=== PATIENT | female | born 1950 | race Caucasian/White ===

== ENCOUNTER 2017-01-03 13:40 | Inpatient (IN) | payer MEDICARE, OTHER ==
[2017-01-03] VITALS (261 sets, daily range): BP systolic 144–152; BP diastolic 71–79; PULSE 109–124; TEMP 97.2–98; O2SAT 86–98
[~2017-01-03] VITALS: Ht 162.6 cm; Wt 76.4 kg
[~2017-01-03 13:40] MED LIST: ASPIRIN 32325 MG/TAB PO; LIPITOR 40MG TA40 MG PO; METOPROLOL SUCC50 M1 PO; PLAVIX 75MG TAB75 MG PO; SIMVASTATIN40 MG PO; THEO-DUR 2200 MG/TAB PO; TYLENOL 325MG325 MG PO; ZESTRIL 5MG5 MG PO
[2017-01-03] MEDS ORDERED: ZOCOR 40MG40 MG PO (14:15)
[2017-01-03] MEDS ORDERED: ASPIRIN 81M81 MG/TA2 PO (14:16)
[2017-01-03] MEDS ORDERED: PROAIR HFA0.09 MG/AC IH (14:17)
[2017-01-03 14:21] LABS: BASO # 0.1 (0.0-0.2); BASO % 0.4 % (0.0-2.0); EOS # 0.1 (0.0-0.7); EOS % 0.5 % (0-4.0); GRAN # 13.6 (1.4-6.5); GRAN % 85.4 % (42.2-75.2); HEMATOCRIT 46.4 % (37.0-47.0); HEMOGLOBIN 14.8 g/dl (12.5-16.0); LYMPH # 1.2 (1.2-3.4); LYMPH % 7.6 % (20.0-51.0); MEAN CELL VOLUME 86 fl (80.0-100.0); MEAN CORPUSCULAR HEMOGLOBIN 27 pg (27.0-31.0); MEAN CORPUSCULAR HGB CONC 32 g/dl (33.0-37.0); MEAN PLATELET VOLUME 11.5 fl (7.4-10.4); MONO # 0.9 (0.1-0.6); MONO % 5.6 % (1.7-9.3); PLATELET COUNT 213 K/mm3 (130-400); RED BLOOD COUNT 5.43 M/mm3 (4.10-5.30); REDCELL DISTRIBUTION WIDTH-CV 16.2 % (11.5-14.5)
[2017-01-03 14:25] LABS: INR 1.1 (0.8-3.0); PROTHROMBIN TIME 12.3 SECONDS (9.7-12.8)
[2017-01-03 14:28] LABS: PARTIAL THROMBOPLASTIN TIME 33.1 SECONDS (26.0-37.0)
[2017-01-03 14:39] LABS: ADJUSTED CALCIUM 9.5 mg/dL (8.4-10.2); ALANINE AMINOTRANSFERASE 21 U/L (9-52); ALBUMIN 4.5 gm/dL (3.5-5.0); ALKALINE PHOSPHATASE 79 U/L (50-136); ANION GAP 14 mmol/L (7-16); BILIRUBIN,TOTAL 1.1 mg/dL (0.0-1.0); BLOOD UREA NITROGEN 12 mg/dL (7-17); CALCIUM 9.9 mg/dL (8.4-10.2); CARBON DIOXIDE 29 mmol/L (22-30); CHLORIDE 97 mmol/L (98-107); CREATININE, serum 0.63 mg/dL (0.52-1.25); GLUCOSE 130 mg/dL (74-106); MAGNESIUM 1.7 mg/dL (1.6-2.3); PHOSPHOROUS 3.4 mg/dL (2.5-4.5); POTASSIUM 4.1 mmol/L (3.4-5.0); SODIUM 140 mmol/L (137-145); TOTAL PROTEIN 8.6 gm/dL (6.4-8.2)
[2017-01-03 14:41] LABS: INFLUENZA B NEGATIVE
[2017-01-03 14:50] LABS: B-TYPE NATRIURETIC PEPTIDE 1440 pg/mL (0-125)
[2017-01-03 14:51] LABS: TROPONIN-I < 0.012 ng/mL (0.000-0.034)
[2017-01-04] VITALS (455 sets, daily range): BP systolic 111–139; BP diastolic 59–82; PULSE 69–102; TEMP 97.9–99; O2SAT 83–97
[2017-01-04 06:09] LABS: ADD PATHOLOGY DIFF REVIEW NO
[2017-01-04 06:24] LABS: HEMATOCRIT 41.1 % (37.0-47.0); MEAN CELL VOLUME 87 fl (80.0-100.0); MEAN CORPUSCULAR HEMOGLOBIN 27 pg (27.0-31.0); MEAN CORPUSCULAR HGB CONC 32 g/dl (33.0-37.0); MEAN PLATELET VOLUME 11.3 fl (7.4-10.4); PLATELET COUNT 180 K/mm3 (130-400); RED BLOOD COUNT 4.75 M/mm3 (4.10-5.30); REDCELL DISTRIBUTION WIDTH-CV 16.3 % (11.5-14.5); WHITE BLOOD COUNT 15.1 K/mm3 (4.8-10.8)
[2017-01-04 06:48] LABS: ADJUSTED CALCIUM 9.2 mg/dL (8.4-10.2); ALBUMIN 3.8 gm/dL (3.5-5.0); BILIRUBIN,TOTAL 0.7 mg/dL (0.0-1.0); CREATININE, serum 0.49 mg/dL (0.52-1.25); POTASSIUM 4.1 mmol/L (3.4-5.0); TOTAL PROTEIN 7.4 gm/dL (6.4-8.2)
[2017-01-04 08:32] LABS: BAND 16 % (0-10); METAMYELOCYTE 1 % (0-0); MYELOCYTE 1 % (0-0); NEUTROPHILS 75 % (42.0-75.2); PLATELET ESTIMATE NORMAL (NORMAL); TOTAL CELLS COUNTED 100
[2017-01-05 03:39] VITALS: BP 120/67; PULSE 101; TEMP 98.6
[2017-01-05 07:33] VITALS: BP 156/70; PULSE 94; TEMP 97.6
[2017-01-05 07:42] VITALS: BP 115/87; PULSE 98; TEMP 98.4
[2017-01-05 11:16] VITALS: BP 128/72; PULSE 104; TEMP 98.5
[2017-01-05] MEDS ORDERED: IPRATROPIUM BROM3 M1 IH (12:54)
[2017-01-05] MEDS ORDERED: CEFTAZIDIME PO (13:04)
[2017-01-05] MEDS ORDERED: [UNRECOGNIZED DRUG - OTHER] PO (13:04)
== END 2017-01-05 14:15 | disposition home or self-care (01) | DRG 190 ==
LOC: COL.ER 13:40 → IMCU 15:51 → MEDICAL 15:51
PROVIDERS: Emergency Medicine; Internal Medicine Cardiovascular Disease
PROC: 02HV33Z Insertion of Infusion Device into Superior Vena Cava, Percutaneous Approach (ICD-10-PCS; principal; 2017-01-04)
DX: J44.0 Chronic obstructive pulmonary disease with (acute) lower respiratory infection (principal); J18.9 Pneumonia, unspecified organism; I50.20 Unspecified systolic (congestive) heart failure; J44.1 Chronic obstructive pulmonary disease with (acute) exacerbation; Z95.5 Presence of coronary angioplasty implant and graft; I25.2 Old myocardial infarction; I27.2 Other secondary pulmonary hypertension; I20.9 Angina pectoris, unspecified; Z87.891 Personal history of nicotine dependence
CPT/HCPCS: 99223-AI; 99233-AI; 99239; C1751; C1894; J0692; J1644; J1956; J2930; J7030; Q9967

== ENCOUNTER 2017-11-26 09:00 | Inpatient (IN) | payer MEDICARE, OTHER ==
[~2017-11-26] VITALS: Ht 162.6 cm; Wt 82.8 kg
[~2017-11-26 09:00] MED LIST changes: +ASPIRIN 81M81 MG/TA2 PO; +CEFTAZIDIME PO; +IPRATROPIUM BROM3 M1 IH; +PROAIR HFA0.09 MG/AC IH; +ZOCOR 40MG40 MG PO; +[UNRECOGNIZED DRUG - OTHER] PO
[2017-11-26] MEDS ORDERED: LOPRESSOR 550 MG/TAB PO (09:11)
[2017-11-26 09:30] LABS: BASO % 0.6 % (0.0-2.0); EOS % 0.5 % (0-4.0); GRAN # 4.6 (1.4-6.5); GRAN % 74.6 % (42.2-75.2); HEMATOCRIT 43.8 % (37.0-47.0); HEMOGLOBIN 13.5 g/dl (12.5-16.0); LYMPH # 0.8 (1.2-3.4); LYMPH % 12.5 % (20.0-51.0); MEAN CELL VOLUME 91 fl (80.0-100.0); MEAN CORPUSCULAR HEMOGLOBIN 28 pg (27.0-31.0); MEAN CORPUSCULAR HGB CONC 31 g/dl (33.0-37.0); MEAN PLATELET VOLUME 10.2 fl (7.4-10.4); MONO # 0.7 (0.1-0.6); MONO % 11.3 % (1.7-9.3); PLATELET COUNT 168 K/mm3 (130-400); RED BLOOD COUNT 4.82 M/mm3 (4.10-5.30); REDCELL DISTRIBUTION WIDTH-CV 14.6 % (11.5-14.5)
[2017-11-26 09:41] LABS: ALBUMIN 4.4 gm/dL (3.5-5.0); BILIRUBIN,TOTAL 0.5 mg/dL (0.0-1.0); CREATININE, serum 0.48 mg/dL (0.52-1.25); POTASSIUM 4.3 mmol/L (3.4-5.0)
[2017-11-26 10:04] LABS: TROPONIN-I < 0.012 ng/mL (0.000-0.034)
[2017-11-26 10:40] LABS: ARTERIAL BLD GAS O2 SATURATION 89.7 % (92-100); ARTERIAL BLD GAS TCO2 CT 33.4; ARTERIAL BLOOD GAS BASE EXCESS 1.7 (-2-2); ARTERIAL BLOOD GAS HCO3 31.1 meq/L (22-26); ARTERIAL BLOOD GAS PCO2 72.8 mmHg (35-45); ARTERIAL BLOOD GAS PO2 64.6 mmHg (80-100); ARTERIAL BLOOD GAS pH 7.25 (7.35-7.45)
[2017-11-26 14:15] VITALS: BP 128/64; PULSE 98; TEMP 98.3
[2017-11-26 17:00] LABS: ARTERIAL BLD GAS O2 SATURATION 88.8 % (92-100); ARTERIAL BLD GAS TCO2 CT 35.3; ARTERIAL BLOOD GAS HCO3 33.1 meq/L (22-26); ARTERIAL BLOOD GAS PO2 57.7 mmHg (80-100); ARTERIAL BLOOD GAS pH 7.28 (7.35-7.45)
[2017-11-26 17:02] LABS: ARTERIAL BLOOD GAS PCO2 72.1 mmHg (35-45)
[2017-11-26 20:31] LABS: ARTERIAL BLD GAS O2 SATURATION 92.8 % (92-100); ARTERIAL BLD GAS TCO2 CT 32.1; ARTERIAL BLOOD GAS HCO3 30.3 meq/L (22-26); ARTERIAL BLOOD GAS PCO2 58.6 mmHg (35-45); ARTERIAL BLOOD GAS pH 7.33 (7.35-7.45)
[2017-11-26 20:57] VITALS: BP 123/60; PULSE 89; TEMP 97.9
[2017-11-27] VITALS (608 sets, daily range): BP systolic 111–152; BP diastolic 56–84; PULSE 88–98; TEMP 97.5–98.3; O2SAT 75–98
[2017-11-27 02:05] LABS: COLLECTION METHOD CLEAN CATCH
[2017-11-27 02:10] LABS: MUCOUS Present /lpf; PH 5 (5-8); SQUAMOUS EPITHELIAL None Seen /hpf; URINE APPEARANCE Clear; URINE BACTERIA None Seen /hpf; URINE BILIRUBIN Negative (NEGATIVE); URINE BLOOD Negative (NEGATIVE); URINE COLOR Yellow; URINE GLUCOSE 3+ (NEGATIVE); URINE KETONE Negative (NEGATIVE); URINE LEUKOCYTE ESTERASE Negative (NEGATIVE); URINE NITRATE Negative (NEGATIVE); URINE PROTEIN(semi-quant) Negative (NEGATIVE); URINE RBC 0-2 /hpf
[2017-11-27 07:20] LABS: GRAN # 3.1 (1.4-6.5); HEMATOCRIT 42.3 % (37.0-47.0); HEMOGLOBIN 12.8 g/dl (12.5-16.0); LYMPH # 0.5 (1.2-3.4); LYMPH % 13.3 % (20.0-51.0); MEAN CELL VOLUME 93 fl (80.0-100.0); MEAN CORPUSCULAR HEMOGLOBIN 28 pg (27.0-31.0); MEAN CORPUSCULAR HGB CONC 30 g/dl (33.0-37.0); MEAN PLATELET VOLUME 10.4 fl (7.4-10.4); MONO # 0.3 (0.1-0.6); MONO % 7.9 % (1.7-9.3); PLATELET COUNT 160 K/mm3 (130-400); RED BLOOD COUNT 4.54 M/mm3 (4.10-5.30); REDCELL DISTRIBUTION WIDTH-CV 14.6 % (11.5-14.5)
[2017-11-27 07:40] LABS: CALCIUM 8.6 mg/dL (8.4-10.2); CREATININE, serum 0.5 mg/dL (0.52-1.25); MAGNESIUM 2.1 mg/dL (1.6-2.3); PHOSPHOROUS 3.3 mg/dL (2.5-4.5); POTASSIUM 4.7 mmol/L (3.4-5.0)
[2017-11-27 10:31] LABS: ARTERIAL BLD GAS O2 SATURATION 91.4 % (92-100); ARTERIAL BLD GAS TCO2 CT 35.2; ARTERIAL BLOOD GAS BASE EXCESS 2.1 (-2-2); ARTERIAL BLOOD GAS HCO3 32.6 meq/L (22-26); ARTERIAL BLOOD GAS PO2 67.2 mmHg (80-100); ARTERIAL BLOOD GAS pH 7.21 (7.35-7.45)
[2017-11-27 10:36] LABS: ARTERIAL BLOOD GAS PCO2 84.2 mmHg (35-45)
[2017-11-27 13:51] LABS: ARTERIAL BLD GAS O2 SATURATION 90.7 % (92-100); ARTERIAL BLD GAS TCO2 CT 35.8; ARTERIAL BLOOD GAS BASE EXCESS 4.2 (-2-2); ARTERIAL BLOOD GAS HCO3 33.5 meq/L (22-26); ARTERIAL BLOOD GAS PO2 62.1 mmHg (80-100); ARTERIAL BLOOD GAS pH 7.27 (7.35-7.45)
[2017-11-27 13:52] LABS: ARTERIAL BLOOD GAS PCO2 74.8 mmHg (35-45)
[2017-11-27 19:51] LABS: ARTERIAL BLD GAS O2 SATURATION 91.1 % (92-100); ARTERIAL BLD GAS TCO2 CT 35.3; ARTERIAL BLOOD GAS BASE EXCESS 4.4 (-2-2); ARTERIAL BLOOD GAS HCO3 33.1 meq/L (22-26); ARTERIAL BLOOD GAS PO2 61.4 mmHg (80-100); ARTERIAL BLOOD GAS pH 7.29 (7.35-7.45)
[2017-11-27 19:57] LABS: ARTERIAL BLOOD GAS PCO2 70.1 mmHg (35-45)
[2017-11-28] VITALS (943 sets, daily range): BP systolic 122–144; BP diastolic 66–92; PULSE 79–106; TEMP 97.5–98.6; O2SAT 82–98
[2017-11-28 05:04] LABS: ARTERIAL BLD GAS O2 SATURATION 95.3 % (92-100); ARTERIAL BLD GAS TCO2 CT 37.4; ARTERIAL BLOOD GAS HCO3 34.9 meq/L (22-26); ARTERIAL BLOOD GAS PO2 79.6 mmHg (80-100); ARTERIAL BLOOD GAS pH 7.25 (7.35-7.45)
[2017-11-28 05:06] LABS: ARTERIAL BLOOD GAS PCO2 80.9 mmHg (35-45)
[2017-11-28 17:29] LABS: ARTERIAL BLD GAS O2 SATURATION 96.8 % (92-100); ARTERIAL BLD GAS TCO2 CT 39.9; ARTERIAL BLOOD GAS BASE EXCESS 6.4 (-2-2); ARTERIAL BLOOD GAS HCO3 37.2 meq/L (22-26); ARTERIAL BLOOD GAS pH 7.24 (7.35-7.45)
[2017-11-29] VITALS (739 sets, daily range): BP systolic 95–141; BP diastolic 66–81; PULSE 83–114; TEMP 97.6–98.8; O2SAT 80–100
[2017-11-29 05:48] LABS: ARTERIAL BLD GAS O2 SATURATION 91.1 % (92-100); ARTERIAL BLD GAS TCO2 CT 41.3; ARTERIAL BLOOD GAS BASE EXCESS 8.2 (-2-2); ARTERIAL BLOOD GAS HCO3 38.6 meq/L (22-26); ARTERIAL BLOOD GAS PO2 61.5 mmHg (80-100); ARTERIAL BLOOD GAS pH 7.27 (7.35-7.45)
[2017-11-29 05:48] LABS: BASO % 0.2 % (0.0-2.0); GRAN # 5.3 (1.4-6.5); GRAN % 79.1 % (42.2-75.2); HEMATOCRIT 44.4 % (37.0-47.0); HEMOGLOBIN 12.8 g/dl (12.5-16.0); LYMPH # 0.9 (1.2-3.4); LYMPH % 12.8 % (20.0-51.0); MEAN CELL VOLUME 97 fl (80.0-100.0); MEAN CORPUSCULAR HEMOGLOBIN 28 pg (27.0-31.0); MEAN CORPUSCULAR HGB CONC 29 g/dl (33.0-37.0); MEAN PLATELET VOLUME 10.2 fl (7.4-10.4); MONO # 0.5 (0.1-0.6); MONO % 6.8 % (1.7-9.3); PLATELET COUNT 198 K/mm3 (130-400); RED BLOOD COUNT 4.59 M/mm3 (4.10-5.30); REDCELL DISTRIBUTION WIDTH-CV 14.7 % (11.5-14.5)
[2017-11-29 05:51] LABS: ARTERIAL BLOOD GAS PCO2 86.2 mmHg (35-45)
[2017-11-29 06:04] LABS: CALCIUM 8.9 mg/dL (8.4-10.2); CREATININE, serum 0.53 mg/dL (0.52-1.25); MAGNESIUM 2.1 mg/dL (1.6-2.3); PHOSPHOROUS 3.1 mg/dL (2.5-4.5); POTASSIUM 4.8 mmol/L (3.4-5.0)
[2017-11-29 13:34] LABS: ARTERIAL BLD GAS O2 SATURATION 91.9 % (92-100); ARTERIAL BLD GAS TCO2 CT 40.3; ARTERIAL BLOOD GAS BASE EXCESS 6.8 (-2-2); ARTERIAL BLOOD GAS HCO3 37.6 meq/L (22-26); ARTERIAL BLOOD GAS PO2 67.6 mmHg (80-100); ARTERIAL BLOOD GAS pH 7.24 (7.35-7.45)
[2017-11-29 13:35] LABS: ARTERIAL BLOOD GAS PCO2 88.9 mmHg (35-45)
[2017-11-29 17:04] LABS: ARTERIAL BLD GAS O2 SATURATION 92.4 % (92-100); ARTERIAL BLD GAS TCO2 CT 37.7; ARTERIAL BLOOD GAS BASE EXCESS 10.3 (-2-2); ARTERIAL BLOOD GAS HCO3 36.1 meq/L (22-26); ARTERIAL BLOOD GAS PCO2 53.1 mmHg (35-45); ARTERIAL BLOOD GAS PO2 57.1 mmHg (80-100); ARTERIAL BLOOD GAS pH 7.45 (7.35-7.45)
[2017-11-29 21:23] LABS: ARTERIAL BLD GAS O2 SATURATION 93.5 % (92-100); ARTERIAL BLD GAS TCO2 CT 39.1; ARTERIAL BLOOD GAS BASE EXCESS 11.6 (-2-2); ARTERIAL BLOOD GAS HCO3 37.4 meq/L (22-26); ARTERIAL BLOOD GAS PCO2 53.6 mmHg (35-45); ARTERIAL BLOOD GAS PO2 60.1 mmHg (80-100); ARTERIAL BLOOD GAS pH 7.46 (7.35-7.45)
[2017-11-30] VITALS (833 sets, daily range): BP systolic 127–137; BP diastolic 74–86; PULSE 80–87; TEMP 97.5–98.9; O2SAT 89–97
[2017-11-30 04:53] LABS: ARTERIAL BLD GAS O2 SATURATION 94.5 % (92-100); ARTERIAL BLD GAS TCO2 CT 37.3; ARTERIAL BLOOD GAS BASE EXCESS 9.1 (-2-2); ARTERIAL BLOOD GAS HCO3 35.6 meq/L (22-26); ARTERIAL BLOOD GAS PCO2 57.3 mmHg (35-45); ARTERIAL BLOOD GAS PO2 70.8 mmHg (80-100); ARTERIAL BLOOD GAS pH 7.41 (7.35-7.45)
[2017-11-30 05:54] LABS: HEMATOCRIT 39.2 % (37.0-47.0); MEAN CELL VOLUME 93 fl (80.0-100.0); MEAN CORPUSCULAR HEMOGLOBIN 28 pg (27.0-31.0); MEAN CORPUSCULAR HGB CONC 30 g/dl (33.0-37.0); MEAN PLATELET VOLUME 10.3 fl (7.4-10.4); PLATELET COUNT 159 K/mm3 (130-400); RED BLOOD COUNT 4.23 M/mm3 (4.10-5.30); REDCELL DISTRIBUTION WIDTH-CV 14.6 % (11.5-14.5)
[2017-11-30 06:07] LABS: HEMOGLOBIN 11.8 g/dl (12.5-16.0)
[2017-11-30 06:11] LABS: CALCIUM 8.3 mg/dL (8.4-10.2); CREATININE, serum 0.55 mg/dL (0.52-1.25); MAGNESIUM 2.1 mg/dL (1.6-2.3); POTASSIUM 4.1 mmol/L (3.4-5.0)
[2017-11-30 07:05] LABS: BAND 25 % (0-10); LYMPHOCYTE 30 % (20.0-51.0); NEUTROPHILS 45 % (42.0-75.2)
[2017-11-30 07:06] LABS: HYPOCHROMIA 2+; PLATELET ESTIMATE NORMAL (NORMAL)
[2017-12-01] VITALS (775 sets, daily range): BP systolic 105–136; BP diastolic 56–82; PULSE 77–91; TEMP 97.6–98.2; O2SAT 87–96
[2017-12-01 05:36] LABS: ARTERIAL BLD GAS O2 SATURATION 91.8 % (92-100); ARTERIAL BLD GAS TCO2 CT 37.3; ARTERIAL BLOOD GAS BASE EXCESS 8.5 (-2-2); ARTERIAL BLOOD GAS HCO3 35.4 meq/L (22-26); ARTERIAL BLOOD GAS PCO2 59.6 mmHg (35-45); ARTERIAL BLOOD GAS PO2 65.3 mmHg (80-100); ARTERIAL BLOOD GAS pH 7.39 (7.35-7.45)
[2017-12-01 05:46] LABS: BASO % 0.2 % (0.0-2.0); GRAN # 5.2 (1.4-6.5); HEMATOCRIT 39.5 % (37.0-47.0); HEMOGLOBIN 12.2 g/dl (12.5-16.0); LYMPH # 0.9 (1.2-3.4); LYMPH % 13.3 % (20.0-51.0); MEAN CELL VOLUME 91 fl (80.0-100.0); MEAN CORPUSCULAR HEMOGLOBIN 28 pg (27.0-31.0); MEAN CORPUSCULAR HGB CONC 31 g/dl (33.0-37.0); MEAN PLATELET VOLUME 10.2 fl (7.4-10.4); MONO # 0.4 (0.1-0.6); MONO % 5.7 % (1.7-9.3); PLATELET COUNT 136 K/mm3 (130-400); RED BLOOD COUNT 4.34 M/mm3 (4.10-5.30); REDCELL DISTRIBUTION WIDTH-CV 14.3 % (11.5-14.5)
[2017-12-01 05:59] LABS: CREATININE, serum 0.47 mg/dL (0.52-1.25); MAGNESIUM 2.2 mg/dL (1.6-2.3)
[2017-12-02] VITALS (920 sets, daily range): BP systolic 111–166; BP diastolic 62–93; PULSE 74–99; TEMP 97.8–98.8; O2SAT 79–99
[2017-12-02 05:05] LABS: ARTERIAL BLD GAS O2 SATURATION 93.7 % (92-100); ARTERIAL BLD GAS TCO2 CT 36.5; ARTERIAL BLOOD GAS BASE EXCESS 6.7 (-2-2); ARTERIAL BLOOD GAS HCO3 34.5 meq/L (22-26); ARTERIAL BLOOD GAS PO2 74.7 mmHg (80-100); ARTERIAL BLOOD GAS pH 7.34 (7.35-7.45)
[2017-12-02 05:06] LABS: ARTERIAL BLOOD GAS PCO2 65.2 mmHg (35-45)
[2017-12-02 05:32] LABS: BASO % 0.1 % (0.0-2.0); GRAN # 7.7 (1.4-6.5); GRAN % 85.3 % (42.2-75.2); HEMATOCRIT 38.9 % (37.0-47.0); HEMOGLOBIN 12.1 g/dl (12.5-16.0); LYMPH # 0.8 (1.2-3.4); LYMPH % 8.8 % (20.0-51.0); MEAN CELL VOLUME 91 fl (80.0-100.0); MEAN CORPUSCULAR HEMOGLOBIN 28 pg (27.0-31.0); MEAN CORPUSCULAR HGB CONC 31 g/dl (33.0-37.0); MEAN PLATELET VOLUME 10.6 fl (7.4-10.4); MONO # 0.5 (0.1-0.6); MONO % 5.1 % (1.7-9.3); PLATELET COUNT 133 K/mm3 (130-400); RED BLOOD COUNT 4.26 M/mm3 (4.10-5.30); REDCELL DISTRIBUTION WIDTH-CV 14.6 % (11.5-14.5)
[2017-12-02 05:44] LABS: CALCIUM 7.6 mg/dL (8.4-10.2); CREATININE, serum 0.4 mg/dL (0.52-1.25); POTASSIUM 4.2 mmol/L (3.4-5.0)
[2017-12-02 05:52] LABS: MAGNESIUM 2.3 mg/dL (1.6-2.3); PHOSPHOROUS 2.6 mg/dL (2.5-4.5)
[2017-12-02 09:02] LABS: ARTERIAL BLD GAS O2 SATURATION 93.1 % (92-100); ARTERIAL BLOOD GAS BASE EXCESS 7.6 (-2-2); ARTERIAL BLOOD GAS HCO3 35.1 meq/L (22-26); ARTERIAL BLOOD GAS pH 7.36 (7.35-7.45)
[2017-12-02 12:30] LABS: ARTERIAL BLD GAS O2 SATURATION 94.7 % (92-100); ARTERIAL BLD GAS TCO2 CT 38.4; ARTERIAL BLOOD GAS BASE EXCESS 7.6 (-2-2); ARTERIAL BLOOD GAS HCO3 36.3 meq/L (22-26); ARTERIAL BLOOD GAS PO2 76.4 mmHg (80-100); ARTERIAL BLOOD GAS pH 7.33 (7.35-7.45)
[2017-12-02 20:09] LABS: ARTERIAL BLD GAS O2 SATURATION 97.4 % (92-100); ARTERIAL BLD GAS TCO2 CT 38.7; ARTERIAL BLOOD GAS BASE EXCESS 6.9 (-2-2); ARTERIAL BLOOD GAS HCO3 36.3 meq/L (22-26); ARTERIAL BLOOD GAS PO2 114.7 mmHg (80-100); ARTERIAL BLOOD GAS pH 7.29 (7.35-7.45)
[2017-12-03] VITALS (826 sets, daily range): BP systolic 121–147; BP diastolic 70–89; PULSE 71–83; TEMP 97–98.7; O2SAT 84–98
[2017-12-03 05:37] LABS: ARTERIAL BLD GAS O2 SATURATION 93.3 % (92-100); ARTERIAL BLD GAS TCO2 CT 39.8; ARTERIAL BLOOD GAS BASE EXCESS 10.2 (-2-2); ARTERIAL BLOOD GAS HCO3 37.8 meq/L (22-26); ARTERIAL BLOOD GAS PCO2 65.3 mmHg (35-45); ARTERIAL BLOOD GAS PO2 69.3 mmHg (80-100); ARTERIAL BLOOD GAS pH 7.38 (7.35-7.45)
[2017-12-03 09:41] LABS: CALCIUM 8.2 mg/dL (8.4-10.2); CREATININE, serum 0.42 mg/dL (0.52-1.25); MAGNESIUM 2.2 mg/dL (1.6-2.3); PHOSPHOROUS 3.1 mg/dL (2.5-4.5); POTASSIUM 4.2 mmol/L (3.4-5.0)
[2017-12-04] VITALS (775 sets, daily range): BP systolic 124–157; BP diastolic 69–84; PULSE 71–99; TEMP 97–98.1; O2SAT 79–97
[2017-12-04 05:24] LABS: ARTERIAL BLD GAS O2 SATURATION 89.2 % (92-100); ARTERIAL BLD GAS TCO2 CT 33.2; ARTERIAL BLOOD GAS BASE EXCESS 5.5 (-2-2); ARTERIAL BLOOD GAS HCO3 31.6 meq/L (22-26); ARTERIAL BLOOD GAS PCO2 52.6 mmHg (35-45); ARTERIAL BLOOD GAS PO2 56.2 mmHg (80-100)
[2017-12-04 06:14] LABS: HEMATOCRIT 37.8 % (37.0-47.0); MEAN CELL VOLUME 92 fl (80.0-100.0); MEAN CORPUSCULAR HEMOGLOBIN 28 pg (27.0-31.0); MEAN CORPUSCULAR HGB CONC 30 g/dl (33.0-37.0); MEAN PLATELET VOLUME 11.1 fl (7.4-10.4); PLATELET COUNT 136 K/mm3 (130-400); RED BLOOD COUNT 4.13 M/mm3 (4.10-5.30); REDCELL DISTRIBUTION WIDTH-CV 14.4 % (11.5-14.5)
[2017-12-04 06:18] LABS: HEMOGLOBIN 11.5 g/dl (12.5-16.0)
[2017-12-04 06:33] LABS: CALCIUM 7.5 mg/dL (8.4-10.2); CREATININE, serum 0.37 mg/dL (0.52-1.25); PHOSPHOROUS 2.6 mg/dL (2.5-4.5); POTASSIUM 3.6 mmol/L (3.4-5.0)
[2017-12-04 06:56] LABS: BAND 1 % (0-10); HYPOCHROMIA 3+; LYMPHOCYTE 10 % (20.0-51.0); NEUTROPHILS 81 % (42.0-75.2); PLATELET ESTIMATE NORMAL (NORMAL)
[2017-12-05] VITALS (307 sets, daily range): BP systolic 124–155; BP diastolic 72–92; PULSE 78–108; TEMP 98.2; O2SAT 74–99
[2017-12-05 04:54] LABS: ARTERIAL BLD GAS O2 SATURATION 92.2 % (92-100); ARTERIAL BLD GAS TCO2 CT 34.7; ARTERIAL BLOOD GAS BASE EXCESS 6.5 (-2-2); ARTERIAL BLOOD GAS PCO2 55.3 mmHg (35-45); ARTERIAL BLOOD GAS pH 7.39 (7.35-7.45)
[2017-12-05 05:44] LABS: HEMOGLOBIN 13.3 g/dl (12.5-16.0); MEAN CELL VOLUME 90 fl (80.0-100.0); MEAN CORPUSCULAR HEMOGLOBIN 28 pg (27.0-31.0); MEAN CORPUSCULAR HGB CONC 31 g/dl (33.0-37.0); MEAN PLATELET VOLUME 11.1 fl (7.4-10.4); PLATELET COUNT 172 K/mm3 (130-400); RED BLOOD COUNT 4.76 M/mm3 (4.10-5.30); REDCELL DISTRIBUTION WIDTH-CV 14.5 % (11.5-14.5)
[2017-12-05 05:58] LABS: CALCIUM 8.4 mg/dL (8.4-10.2); CREATININE, serum 0.47 mg/dL (0.52-1.25); MAGNESIUM 1.9 mg/dL (1.6-2.3); PHOSPHOROUS 4.3 mg/dL (2.5-4.5); POTASSIUM 4.2 mmol/L (3.4-5.0)
[2017-12-05 06:00] LABS: BAND 2 % (0-10); NEUTROPHILS 83 % (42.0-75.2); STOMATOCYTE 1+
[2017-12-05 06:01] LABS: ANISOCYTOSIS 1+; LYMPHOCYTE 14 % (20.0-51.0); POIKILOCYTOSIS 1+
[2017-12-05] MEDS ORDERED: COREG 3.123.125 MG/T PO (09:18)
[2017-12-06 10:57] LABS: ALK PHOS ISOENZYME - TOTAL XXX
[2017-12-06 10:58] LABS: ALK PHOS ISOENZYME XXX; ALK PHOS ISOENZYME - TOTAL XXX
[2017-12-06 10:58] LABS: ALK PHOS ISOENZYME XXX
== END 2017-12-05 11:20 | DRG 208 ==
LOC: COL.ER 09:00 → ICU 10:57 → MEDICAL 10:57 → ICU 11-27 11:56
PROVIDERS: Family Medicine; Internal Medicine; Internal Medicine Pulmonary Disease; Nurse Practitioner Family
PROC: 0BH18EZ Insertion of Endotracheal Airway into Trachea, Via Natural or Artificial Opening Endoscopic (ICD-10-PCS; principal; 2017-11-29)
PROC: 5A1945Z Respiratory Ventilation, 24-96 Consecutive Hours (ICD-10-PCS; 2017-11-29)
DX: J96.21 Acute and chronic respiratory failure with hypoxia (principal); I50.32 Chronic diastolic (congestive) heart failure; J44.1 Chronic obstructive pulmonary disease with (acute) exacerbation; J96.22 Acute and chronic respiratory failure with hypercapnia; J10.1 Influenza due to other identified influenza virus with other respiratory manifestations; I25.10 Atherosclerotic heart disease of native coronary artery without angina pectoris; Z95.5 Presence of coronary angioplasty implant and graft; I11.0 Hypertensive heart disease with heart failure; I27.22 Pulmonary hypertension due to left heart disease; Z87.891 Personal history of nicotine dependence; I34.0 Nonrheumatic mitral (valve) insufficiency
CPT/HCPCS: 99222-AI; 99232-AI; 99233-AI; 99238; A4314; C1751; C1894; J0360; J0692; J1644; J1815; J1956; J2405; J2704; J2920; J2930; J3010; J7030; J7512